=== PATIENT | male | born 1960 | race African-American/Black ===

== ENCOUNTER 2021-02-04 11:13 | Emergency (ER) | payer OTHER ==
[~2021-02-04] VITALS: Ht 172.7 cm; Wt 86.2 kg
[2021-02-04 12:16] LABS: ABSOLUTE NEUTROPHILS 10.4 thou/uL (1.4-8.2); BASOPHILS 0.1 % (0.0-2.0); EOSINOPHILS 0.1 % (0.0-3.0); HEMATOCRIT 48.2 % (42.0-52.0); HEMOGLOBIN 16.3 gm/dL (14.0-18.0); LYMPHOCYTES 16.1 % (24.0-44.0); MCH 31.8 pg (26.0-34.0); MCHC 33.8 g/dL (28.0-37.0); MCV 94.1 fL (80.0-100.0); MONOCYTES 2.7 % (1.0-8.0); PLATELET COUNT 237 thou/uL (150-400); RBC 5.12 mil/uL (4.50-6.00); RDW 13.3 % (10.5-14.5); WBC 12.8 thou/uL (4.0-11.0)
[2021-02-04 12:22] LABS: ANION GAP 9 mmol/L (7-16); BUN 11 mg/dL (7-18); CALCIUM 9.1 mg/dL (8.5-10.1); CHLORIDE 102 mmol/L (98-107); CO2 26 mmol/L (21-32); CREATININE 1.2 mg/dL (0.7-1.3); GLUCOSE 156 mg/dL (74-106); POTASSIUM 3.6 mmol/L (3.5-5.1); SODIUM 137 mmol/L (136-145)
[2021-02-04 12:32] LABS: ALBUMIN 4.2 g/dL (3.4-5.0); LIPASE 96 U/L (73-393); SGOT 25 U/L (15-37); SGPT 28 U/L (16-63); TOTAL BILIRUBIN 1.3 mg/dL (0.2-1.0); TROPONIN-I <0.06 ng/mL (<0.06)
[2021-02-04 14:14] LABS: URINE BILIRUBIN NEGATIVE (Negative); URINE BLOOD NEGATIVE (Negative); URINE CLARITY CLEAR; URINE COLOR YELLOW; URINE GLUCOSE-RANDOM* NEGATIVE (Negative); URINE KETONES NEGATIVE (Negative); URINE LEUKOCYTES-REFLEX NEGATIVE (Negative); URINE NITRITE-REFLEX NEGATIVE (Negative); URINE PROTEIN (DIPSTICK) NEGATIVE (Negative); URINE SPECIFIC GRAVITY 1.015 (1.005-1.035); URINE UROBILINOGEN 0.2 E.U./dl (0.2-1.0)
[2021-02-04] MEDS ORDERED: MEDI-MECLIZINE25 MG PO (14:14)
[2021-02-04] MEDS ORDERED: ONDANSETRON HCL4 M2 PO (14:14)
[2021-02-04 14:25] VITALS: BP 132/77
--- NOTE | 2021-02-06 09:25 | EKG ---
[place] [address] [facility] [place] [address] ELECTROCARDIOGRAM REPORT Name: TUCKERCON Room #: DEP ROSIE Amin#: [id number] Admission: 02/04/21 Attend Phys: Discharge: 02/04/21 Date of : 58 Report #: [id number] [facility] ED Test Date: 2021-02-04 Test Time: 11:37:18 Pat Name: CON CEBALLOS Department: Room: Gender: Panel Fitter: JCHAICARSON : 1960 Requested By: Joel Gonzalez Order Number: [id number] MD: Adilson Mcgee Measurements Intervals [place] Rate: 75 P: 68 MA: 174 QRS: 57 QRSD: 88 T: -12 QT: 402 QTc: 449 Interpretive Statements Sinus rhythm Nonspecific ST segment abnormality No previous ECG available for comparison Electronically Signed On 02-06-2021 9:25:25 CDT by Adilson Mcgee [email or web address] <ELECTRONICALLY SIGNED> By: Adilson Mcgee MD, [facility] 02/06/21 0925 [id number] 1137 Adilson Mcgee MD, FACC /EPI
== END 2021-02-04 14:25 | disposition home or self-care (01) ==
LOC: ER 11:13
PROVIDERS: Physician Assistant
DX: R11.2 Nausea with vomiting, unspecified (principal); R42 Dizziness and giddiness; R10.13 Epigastric pain